=== PATIENT | male | born 1985 | race Two or more races ===

== ENCOUNTER 2016-11-15 19:11 | Emergency (ER) | payer SELFPAY ==
[~2016-11-15] VITALS: Ht 172.7 cm; Wt 75.3 kg
[2016-11-15 20:28] LABS: HEMATOCRIT 50.1 % (39.2-51.8); HEMOGLOBIN 17.1 g/dL (13.7-18.0); WHITE BLOOD COUNT 7.1 x10^3/uL (3.4-10)
[2016-11-15 20:40] LABS: BLOOD UREA NITROGEN 13 mg/dL (7-18)
[2016-11-15 21:43] VITALS: BP 114/72
== END 2016-11-15 21:45 | disposition home or self-care (01) ==
LOC: ED 21:30
DX: I86.1 Scrotal varices (principal)
CPT/HCPCS: 36415; 76870; 80048; 81003; 82040; 85025; 99285